=== PATIENT | female | born 1985 | race Caucasian/White ===

== ENCOUNTER 2021-06-07 21:04 | Emergency (ER) | payer OTHER ==
[2021-06-07] MEDS ORDERED: CEFDINIR300 MG PO (23:57)
== END 2021-06-08 00:08 | disposition home or self-care (01) ==
LOC: FER 21:04
DX: H92.02 Otalgia, left ear (principal); E11.9 Type 2 diabetes mellitus without complications; I10 Essential (primary) hypertension; Z88.5 Allergy status to narcotic agent; Z88.2 Allergy status to sulfonamides; Z79.899 Other long term (current) drug therapy
CPT/HCPCS: 99283; J0696

== ENCOUNTER 2021-07-13 21:29 | Emergency (ER) | payer OTHER ==
[~2021-07-13 21:29] MED LIST: CEFDINIR300 MG PO
[2021-07-13 22:53] LABS: BASOPHIL 0.7 % (0-2); EOSINOPHIL 1.6 % (0-5); HCT 45.4 % (37.0-47.0); HGB 14.8 g/dl (12.5-16.0); LYMPHOCYTE 34.1 % (15-48); MCH 26.6 pg (25.0-31.0); MCHC 32.6 g/dL (32.0-36.0); MCV 81.7 fL (78.0-100.0); MONOCYTE 6.8 % (0-12); MPV 10.7 fL (6.0-9.5); NEUTROPHIL 56.3 % (41-80); NRBC 0; PLT 369 K/uL (150-400); RBC 5.56 M/uL (4.20-5.40); RDW 13.1 % (11.5-14.0); WBC 14.7 K/uL (4.0-10.5)
[2021-07-13 23:00] LABS: BILIRUBIN NEGATIVE (NEGATIVE); BLOOD NEGATIVE Ery/uL (NEGATIVE); CLARITY CLEAR (CLEAR); COLOR YELLOW (YELLOW); GLUCOSE (U) NORMAL (NORMAL); LEUKOCYTES TRACE Leu/uL (NEGATIVE); NITRITE NEGATIVE (NEGATIVE); PROTEIN NEGATIVE (NEGATIVE); SPECIFIC GRAVITY 1.015 (1.001-1.030); UROBILINOGEN 0.2 mg/dL (0.2-1.0); pH 7.5 (5.0-9.0)
[2021-07-13 23:04] LABS: ALBUMIN 3.6 g/dL (3.4-5.0); BILIRUBIN - TOTAL 0.2 mg/dL (0.2-1.0); BUN/CREAT RATIO (CALC) 11.8 RATIO; C-REACTIVE PROTEIN 0.4 mg/dL (<=0.90); CREATININE 0.76 mg/dL (0.51-0.95); GLOBULIN (CALCULATION) 4.1 g/dL; POTASSIUM 3.9 mmol/L (3.5-5.1); TOTAL PROTEIN 7.7 g/dL (6.4-8.2)
[2021-07-13 23:06] LABS: BACTERIA 1+
[2021-07-13 23:07] LABS: AMORPHOUS URATES CRYSTALS TRACE; MUCOUS TRACE
[2021-07-14] MEDS ORDERED: PERCOCET 5-3251 EACH PO (02:46)
[2021-07-14] MEDS ORDERED: ZESTRIL5 MG PO (02:46)
[2021-07-14] MEDS ORDERED: AZITHROMYCIN250 MG PO (02:46)
[2021-07-14] MEDS ORDERED: BUSPIRONE HCL10 MG PO (02:46)
== END 2021-07-14 03:16 | disposition home or self-care (01) ==
LOC: FER 21:29
PROVIDERS: Emergency Medicine Emergency Medical Services
DX: U07.1 COVID-19 (principal); J12.82 Pneumonia due to coronavirus disease 2019; I10 Essential (primary) hypertension; R10.9 Unspecified abdominal pain; E11.9 Type 2 diabetes mellitus without complications; F17.200 Nicotine dependence, unspecified, uncomplicated; F41.9 Anxiety disorder, unspecified; F32.9 Major depressive disorder, single episode, unspecified; Z88.2 Allergy status to sulfonamides; Z88.5 Allergy status to narcotic agent; Z90.49 Acquired absence of other specified parts of digestive tract; Z79.899 Other long term (current) drug therapy
CPT/HCPCS: 36415; 71275; 80053; 81001; 84484; 85025; 85379; 86140; 87088; J0696; J1170; J1885; J2405; Q9967

== ENCOUNTER 2021-07-28 22:19 | Emergency (ER) | payer OTHER ==
[~2021-07-28 22:19] MED LIST changes: +AZITHROMYCIN250 MG PO; +BUSPIRONE HCL10 MG PO; +PERCOCET 5-3251 EACH PO; +ZESTRIL5 MG PO
[2021-07-29 00:06] LABS: BASOPHIL 0.7 % (0-2); EOSINOPHIL 3.6 % (0-5); HCT 42.5 % (37.0-47.0); HGB 14.2 g/dl (12.5-16.0); LYMPHOCYTE 33.2 % (15-48); MCH 27.5 pg (25.0-31.0); MCHC 33.4 g/dL (32.0-36.0); MCV 82.4 fL (78.0-100.0); MONOCYTE 6.7 % (0-12); MPV 10.2 fL (6.0-9.5); NEUTROPHIL 55.5 % (41-80); NRBC 0; PLT 283 K/uL (150-400); RBC 5.16 M/uL (4.20-5.40); RDW 13.2 % (11.5-14.0); WBC 12.2 K/uL (4.0-10.5)
[2021-07-29 00:56] LABS: ALBUMIN 3.2 g/dL (3.4-5.0); BILIRUBIN - TOTAL 0.2 mg/dL (0.2-1.0); BUN/CREAT RATIO (CALC) 11.9 RATIO; CREATININE 0.84 mg/dL (0.51-0.95); GLOBULIN (CALCULATION) 3.8 g/dL; POTASSIUM 4.1 mmol/L (3.5-5.1)
[2021-07-29] MEDS ORDERED: AUGMENTIN 875-1 EACH PO (02:39)
[2021-07-29] MEDS ORDERED: ONDANSETRON ODT4 MG PO (02:39)
== END 2021-07-29 03:15 | disposition home or self-care (01) ==
LOC: FER 22:19
PROVIDERS: Internal Medicine
DX: J03.90 Acute tonsillitis, unspecified (principal); R59.0 Localized enlarged lymph nodes; E04.1 Nontoxic single thyroid nodule; E11.9 Type 2 diabetes mellitus without complications; I10 Essential (primary) hypertension; F17.210 Nicotine dependence, cigarettes, uncomplicated; Z88.2 Allergy status to sulfonamides; Z86.16 Personal history of COVID-19; Z79.899 Other long term (current) drug therapy
CPT/HCPCS: 36415; 70490; 71275; 80053; 84145; 85025; 87880; J0696; J1885; Q9967

== ENCOUNTER 2022-02-22 19:08 | Emergency (ER) | payer OTHER ==
[~2022-02-22 19:08] MED LIST changes: +AUGMENTIN 875-1 EACH PO; +ONDANSETRON ODT4 MG PO
[2022-02-22] MEDS ORDERED: NORCO 5-325 TA1 EACH PO (22:18)
== END 2022-02-22 22:26 | disposition home or self-care (01) ==
LOC: FER 19:08
DX: S13.4XXA Sprain of ligaments of cervical spine, initial encounter (principal); S93.401A Sprain of unspecified ligament of right ankle, initial encounter; E11.9 Type 2 diabetes mellitus without complications; I10 Essential (primary) hypertension; K21.9 Gastro-esophageal reflux disease without esophagitis; Z79.84 Long term (current) use of oral hypoglycemic drugs; Z79.899 Other long term (current) drug therapy; Z88.5 Allergy status to narcotic agent; W19.XXXA Unspecified fall, initial encounter; Y92.009 Unspecified place in unspecified non-institutional (private) residence as the place of occurrence of the external cause
CPT/HCPCS: 70450; 72125; 73620

== ENCOUNTER 2022-03-08 22:34 | Emergency (ER) | payer OTHER ==
[~2022-03-08 22:34] MED LIST changes: +NORCO 5-325 TA1 EACH PO
[2022-03-09] MEDS ORDERED: NORCO 5-325 TA1 EACH PO (00:50)
== END 2022-03-09 00:59 | disposition home or self-care (01) ==
LOC: FER 22:34
DX: L02.214 Cutaneous abscess of groin (principal); L73.2 Hidradenitis suppurativa; I10 Essential (primary) hypertension; E11.9 Type 2 diabetes mellitus without complications; F17.210 Nicotine dependence, cigarettes, uncomplicated; Z88.2 Allergy status to sulfonamides; Z88.6 Allergy status to analgesic agent; Z88.8 Allergy status to other drugs, medicaments and biological substances; Z28.310 Unvaccinated for COVID-19